=== PATIENT | male | born 1950 | race Caucasian/White ===

== ENCOUNTER 2017-10-22 15:01 | Emergency (ER) | payer OTHER ==
--- NOTE | 2017-10-22 15:16 | Emergency Department Record ---
History of Present Illness - General Chief Complaint: Back Pain/Injury Stated Complaint: BACK PAIN Time Seen by Provider: 10/22/17 15:11 Source: Patient Mode of Arrival: Ambulatory Limitations: No limitations - History of Present Illness Initial Comments: 67 yo male presents to ED for evaluation of low back pain following a slip and fall 1.5 hours ago. Patient reports that he was working outside when he slipped and fell, was able to stand back up and ambulate without difficulty. Patient denies head injury, neck pain, numbness, tingling, or extremity weakness. Patient denies chest or abdominal pain symptoms following fall either. Patient reports that he just took acetaminophen for his pain symptoms, denies the need for analgesia at this time. MD Complaint: Back pain Onset/Timin -: Hour(s) Similar Symptoms Previously: Yes Place: Home Radiation: Other Severity: Moderate Severity scale (1-10): 10 Quality: Sharp Consistency: Constant Improves With: None Worsens With: None Context: Fall Associated Symptoms: Denies other symptoms Treatments Prior to Arrival: Acetaminophen - Related Data Home Medications Medication Instructions Recorded Confirmed Last Taken Acetaminophen [Tylenol Extra 1,000 mg PO TID PRN 10/22/17 10/22/17 Unknown Strength] Amlodipine Besylate [Norvasc] 10 mg PO DAILY 10/22/17 10/22/17 Unknown Cyanocobalamin (Vitamin B-12) 1,000 mcg PO DAILY 10/22/17 10/22/17 Unknown [Vitamin B12] Gabapentin [Neurontin] 300 mg PO QHS 10/22/17 10/22/17 Unknown Lisinopril [Prinivil] 10 mg PO DAILY 10/22/17 10/22/17 Unknown Prazosin HCl 6 mg PO QHS 10/22/17 10/22/17 Unknown Simvastatin [Zocor] 20 mg PO QHS 10/22/17 10/22/17 Unknown Allergies Allergy/AdvReac Type Severity Reaction Status Date / Time No Known Drug Allergies Allergy Verified 10/22/17 15:07 Travel Screening - Travel/Exposure Within Last 30 Days Have you traveled within the last 30 days?: No Review of Systems Constitutional: Denies: Chills, Fever, Malaise, Night sweats Eyes: Denies: Eye discharge, Eye pain ENT: Denies: Congestion, Ear pain, Epistaxis Respiratory: Denies: Cough, Dyspnea Cardiovascular: Denies: Chest pain, Dyspnea on exertion Endocrine: Denies: Fatigue, Heat or cold intolerance Gastrointestinal: Denies: Abdominal pain, Nausea, Vomiting Musculoskeletal: Reports: Back pain. Denies: Arthralgia, Gout, Joint swelling Skin: Denies: Bruising, Change in color Neurological: Denies: Abnormal gait, Confusion, Headache, Seizure Psychiatric: Denies: Anxiety Hematological/Lymphatic: Denies: Anemia, Blood Clots Past Medical History - SOCIAL HISTORY Smoking Status: Current every day smoker Alcohol Use: None Drug Use: None - RESPIRATORY Hx Respiratory Disorders: No - CARDIOVASCULAR Hx Cardio Disorders: Yes Hx Hypertension: Yes - NEURO Hx Neuro Disorders: No - GI Hx GI Disorders: Yes Comment:: diarrhea - Hx Genitourinary Disorders: No - ENDOCRINE Hx Endocrine Disorders: No - MUSCULOSKELETAL Hx Musculoskeletal Disorders: Yes - PSYCH Hx Psych Problems: No - HEMATOLOGY/ONCOLOGY Hx Hematology/Oncology Disorders: No Family Medical History Any Significant Family History?: No Physical Exam - General General Appearance: Alert, Oriented x3, Cooperative, Other (ambulates easily, stands upright/bends over easily as well.) Limitations: No limitations - Head Head exam: Atraumatic, Normocephalic, Normal inspection Head exam detail: negative: Abrasion, Contusion, Chávez's sign, General tenderness, Hematoma, Laceration - Eye Eye exam: Normal appearance. negative: Conjunctival injection, Periorbital swelling, Periorbital tenderness, Scleral icterus - ENT Ear exam: negative: Auricular hematoma, Auricular trauma Nasal Exam: negative: Active bleeding, Discharge, Dried blood, Foreign body Mouth exam: negative: Drooling, Laceration, Muffled voice, Tongue elevation - Neck Neck exam: Normal inspection. negative: Meningismus, Tenderness - Respiratory Respiratory exam: Normal lung sounds bilaterally. negative: Rales, Respiratory distress, Rhonchi, Stridor - Cardiovascular Cardiovascular Exam: Regular rate, Normal rhythm, Normal heart sounds - GI/Abdominal GI/Abdominal exam: Soft. negative: Rebound, Rigid, Tenderness - Rectal Rectal exam: Deferred - exam: Deferred - Extremities Extremities exam: Normal inspection. negative: Pedal edema, Tenderness - Back Back exam: Reports: Paraspinal tenderness (Left lumbar region laterally). Denies: CVA tenderness (R), CVA tenderness (L) - Neurological Neurological exam: Alert, Normal gait, Oriented X3 - Psychiatric Psychiatric exam: Normal affect, Normal mood - Skin Skin exam: Normal color. negative: Abrasion Type of lesion: negative: abrasion Course Vital Signs 10/22/17 15:02 Temperature 98.2 F Pulse Rate 124 H Respiratory 22 Rate Blood Pressure 169/110 Pulse Ox 99 - Reevaluation(s) Reevaluation #1: 10/22/17 15:52 Lumbar Spine: Degenerative changes, AAA measuring 4.1 cm in diameter Reevaluation #2: 10/22/17 17:14 Labs reviewed and are grossly unremarkable for an acute process. Patient is going for CTA currently. Patient reports that he is pain-free at this time, would like coffee to drink. Declined until after CTA has been completed. Reevaluation #3: 10/22/17 18:14 CTA Aorta Aneursym measuring 3.2 x 3.4 cm infra-renal No extravasation of contrast Proximal infra-renal dissection measuring 5-7 mm Right common iliac aneurysm measuring 2.4 x 1.4 cm, no extravasation Trace FF pelvis Cholecystitis Diverticulosis Patient was updated on his CTA results demonstrating an aortic dissection, recommended transfer for cardiovascular surgery consultation. Patient was counseled regarding the benefit of transfer and consultation with a CV surgeon vs. the risk of , permanent impairment, and loss of current lifestyle. Patient is alert, oriented, answers all questions appropriately on examination and has the capacity to make rational decisions based on my examination. Patient want to leave AMA at this time as he has duties at home that he needs to attend to. Patient was given contact information for the CV surgeon on-call at [facility] for follow-up, and was encouraged to return to ED if he changes his mind or if his symptoms worsen. Patient appears stable for discharge AMA at this time. Clinically, the patient is standing, drinking coffee, denies back pain/LE weakness symptoms, will discharge AMA. Medical Decision Making - Lab Data Result diagrams: 10/22/17 16:20 10/22/17 16:20 Disposition Disposition: Discharge Clinical Impression: Back pain Qualifiers: Back pain location: low back pain Chronicity: acute Back pain laterality: left Sciatica presence: without sciatica Qualified Code(s): M54.5 - Low back pain Aortic dissection Qualifiers: Aortic location: abdominal aorta Qualified Code(s): I71.02 - Dissection of abdominal aorta Disposition: Against Medical Advice Condition: (2) Stable Instructions: Thoracic Aortic Aneurysm (ED) Additional Instructions: Return to ED if your symptoms worsen or if you have any concerns. Follow-up with Dr. Melton in 1-3 days for further evaluation of your aneurysm and dissection (call [phone]). Forms: Patient Portal Access Time of Disposition: 18:24 Quality - Quality Measures Quality Measures: N/A - Blood Pressure Screening Does Patient Have Any of the Following: Active Dx of HTN Blood Pressure Classification: Hypertensive Reading Systolic Measurement: 172 Diastolic Measurement: 97 Screening for High Blood Pressure: Patient Exclusion, Hx of HTN [[id number]]
[2017-10-22 16:39] LABS: HEMATOCRIT 41.6 % (42.0-52.0); HEMOGLOBIN 14.9 gm/dl (14.0-18.0); MEAN CELL VOLUME 92.7 fl (81-97); MEAN CORPUSCULAR HEMOGLOBIN 33.2 pg (27-33); MEAN CORPUSCULAR HGB CONC 35.8 g/dl (32-36); MEAN PLATELET VOLUME 10.2 fl (7.4-10.4); PLATELET COUNT 153 K/uL (130-400); RED BLOOD COUNT 4.49 M/uL (4.40-5.70); RED CELL DISTRIBUTION WIDTH 12.3 % (11.5-14.5)
[2017-10-22 16:58] LABS: PLATELET ESTIMATE NORMAL (NORMAL)
[2017-10-22 17:00] LABS: BLOOD UREA NITROGEN 12 mg/dL (8-23)
[2017-10-22 17:01] LABS: CREATININE 0.9 mg/dL (0.7-1.2); EST GLOMERULAR FILTRATION RATE > 60 mL/min; TOTAL PROTEIN 8.1 g/dL (6.6-8.7)
[2017-10-22 17:03] LABS: GLUCOSE,RANDOM 77 mg/dL (74-109)
[2017-10-22 17:06] LABS: ALB/GLOB RATIO 1.6 (1.1-1.8); ALKALINE PHOSPHATASE 80 U/L (40-129); ALT/SGPT 15 U/L (<41); AST/SGOT 19 U/L (10.0-50.0)
--- NOTE | 2017-10-22 23:48 | RADIOLOGY REPORT ---
EXAM: LUMBAR SPINE W/OBLIQUES HISTORY: INJURY. TECHNIQUE: AP, lateral, and oblique views of the lumbar spine were performed. FINDINGS: There is normal vertebral body height. There is mild degenerative change at the L3-4 through L5-S1 levels. There is facet arthropathy at these levels. There is aneurysmal dilatation of the abdominal aorta measuring up to 4 cm radiographically. IMPRESSION: 1. DEGENERATIVE CHANGE AT L3-4 THROUGH L5-S1 LEVELS. 2. ANEURYSMAL DILATATION OF THE ABDOMINAL AORTA MEASURING UP TO 4.0 CM RADIOGRAPHICALLY. JOB NUMBER: [id number] MTDD
--- NOTE | 2017-10-23 00:50 | CT ANGIOGRAM REPORT ---
EXAM: CT ANGIOGRAM ABDOMEN/PELVIS CTA HISTORY: BACK PAIN POST FALL. ANEURYSM DEMONSTRATED ON SAME-DAY RADIOGRAPHIC EXAMINATION OF THE LUMBAR SPINE. TECHNIQUE: Helical CT examination of the abdomen and pelvis is performed prior to intravenous contrast administration. Next, routine CTA examination of the abdomen and pelvis is performed with 100 mL of Omnipaque-350 utilized. Maximum- intensity projection reformatted images are generated in multiple planes and reviewed as well as 3D volume-rendered images. COMPARISON: Same-day radiographic evaluation of the lumbar spine. FINDINGS: Opacification of the systemic arteries is satisfactory for interpretation. The heart is not enlarged. There is a small anterior pericardial effusion. There is diffuse atherosclerosis. The distal descending thoracic aorta measures 2.4 cm in diameter, while at the hiatus the aorta measures 2.0 cm. The juxtarenal portion of the aorta measures 1.8 x 2.0 cm. There is somewhat bilobed dilatation of the infrarenal abdominal aorta beginning approximately 3 cm distal to the right renal artery origin. The proximal portion measures 3.5 cm in transverse diameter and 3.2 cm in AP diameter, while the distal component measures 2.6 cm AP diameter, by 2.8 cm in transverse diameter. There is no extension of the aneurysm into the common iliac arteries. There is a questionable very short segment of linear luminal filling defect within the proximal infrarenal abdominal aorta, best seen on image #66 of 183 suggesting a short segment of dissection. This is likely chronic. There is minor atherosclerosis of the origin of the celiac artery causing less than 50% stenosis. The branches of the celiac artery are patent. There is mild diffuse atherosclerosis of the splenic artery. The superior mesenteric artery and its proximal branches are patent, as is a small inferior mesenteric artery. Single renal arteries are present. There is partially calcified plaque at the origin of the left renal artery causing approximately 50-60% stenosis. Minor atherosclerosis of the proximal right renal artery causes less than 20% stenosis. There is mild diffuse atherosclerosis of the common iliac arteries. There is evidence of eccentric aneurysmal dilatation/outpouching arising from the posterior wall of the distal aspect of the right common iliac artery measuring approximately 1.7 x 2.4 cm. This is consistent with aneurysm or chronic pseudoaneurysm. There is mild to moderate diffuse atherosclerosis of the external iliac arteries and internal iliac arteries without evidence of high-grade stenosis. There is mild atherosclerosis of the common femoral arteries causing less than 50% stenosis. The common femoral bifurcations are patent. No pelvic mass nor lymphadenopathy is seen. There is trace free fluid in the dependent pelvis. There is diverticulosis of the distal colon without evidence of diverticulitis. Vascular calcifications are suggested in each renal sinus. There is a small cyst suspected in the anterolateral mid right kidney and there is likely a tiny cortical cyst in the posterior mid to lower right kidney. A tiny cortical cyst is suggested in the posterior mid left kidney and there is a mildly contour- deforming cyst suggested in the posteromedial mid to upper left kidney measuring 1.9 cm. No other renal mass. No suspicious focal abnormality involving the spleen, pancreas, nor adrenal glands. There is cholelithiasis without CT evidence of acute cholecystitis. No biliary ductal dilatation is seen. There are a couple small foci of hyperenhancement within the liver seen on postcontrast images with that superiorly near the junction of the right and left lobes measuring 12 mm and that in the high anterior segment of the right liver lobe measuring 8 mm. These are nonspecific though may just relate to benign transient areas of hyperattenuation. No lytic or blastic bone lesion. There are degenerative changes scattered within the visualized spine. The lung bases are grossly clear. No pleural effusion. There is moderate atherosclerotic calcification of the visualized portions of the coronary arteries. IMPRESSION: 1. BILOBED INFRARENAL ABDOMINAL AORTIC ANEURYSM, DETAILED ABOVE. 2. SHORT SEGMENT OF LINEAR LUMINAL FILLING DEFECT IN THE PROXIMAL INFRARENAL PORTION OF THE ABDOMINAL AORTA SUSPICIOUS FOR SMALL DISSECTION, PROBABLY CHRONIC. 3. 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 4. CHOLELITHIASIS. 5. COLONIC DIVERTICULOSIS WITHOUT EVIDENCE OF DIVERTICULITIS. 6. TRACE FLUID IN THE DEPENDENT PELVIS. 7. SMALL PERICARDIAL EFFUSION. 8. THERE ARE A COUPLE SMALL AREAS OF HYPERENHANCEMENT WITHIN THE SUPERIOR LIVER , NONSPECIFIC THOUGH PROBABLY BENIGN AREAS OF DIFFERENTIAL PERFUSION. JOB NUMBER: [id number] [facility]
== END 2017-10-22 18:38 | disposition left against medical advice (07) ==
LOC: ER 15:01
DX: I71.02 Dissection of abdominal aorta (principal); M54.5 Low back pain; W00.0XXA Fall on same level due to ice and snow, initial encounter; Y92.007 Garden or yard of unspecified non-institutional (private) residence as the place of occurrence of the external cause; I10 Essential (primary) hypertension; F17.210 Nicotine dependence, cigarettes, uncomplicated
CPT/HCPCS: 72110; 74174; 80053; 85027; 99284